=== PATIENT | male | born 1975 | race Caucasian/White ===

== ENCOUNTER 2020-12-30 15:13 | Emergency (ER) | payer OTHER ==
[~2020-12-30 15:13] MED LIST: COLACE100 MG PO; FLEXERIL10 MG PO; MEDROL 4MG DOSEP4 MG PO; PRILOSEC20 MG PO; PRINIVIL10 MG PO
[2020-12-30 17:10] LABS: BASOPHIL 0.6 % (0-2); EOSINOPHIL 5.4 % (0-5); HCT 40.9 % (42.0-52.0); HGB 13.8 g/dl (13.2-18.0); LYMPHOCYTE 29.1 % (15-48); MCH 30.7 pg (25.0-31.0); MCHC 33.7 g/dL (32.0-36.0); MCV 91.1 fL (78.0-100.0); MONOCYTE 11.7 % (0-12); MPV 9.6 fL (6.0-9.5); NEUTROPHIL 52.7 % (41-80); NRBC 0; PLT 255 K/uL (150-400); RBC 4.49 M/uL (4.70-6.00); RDW 13.1 % (11.5-14.0); WBC 8.3 K/uL (4.0-10.5)
[2020-12-30 17:14] LABS: ALBUMIN 3.5 g/dL (3.4-5.0); BILIRUBIN - TOTAL 0.4 mg/dL (0.2-1.0); BUN/CREAT RATIO (CALC) 20.2 RATIO; CREATININE 0.99 mg/dL (0.67-1.17); GLOBULIN (CALCULATION) 3.8 g/dL; POTASSIUM 4.2 mmol/L (3.5-5.1); TOTAL PROTEIN 7.3 g/dL (6.4-8.2)
[2020-12-30 17:17] LABS: BILIRUBIN NEGATIVE (NEGATIVE); BLOOD NEGATIVE Ery/uL (NEGATIVE); CLARITY CLEAR (CLEAR); COLOR YELLOW (YELLOW); GLUCOSE (U) NORMAL (NORMAL); LEUKOCYTES NEGATIVE Leu/uL (NEGATIVE); NITRITE NEGATIVE (NEGATIVE); PROTEIN NEGATIVE (NEGATIVE); SPECIFIC GRAVITY >=1.030 (1.001-1.030); UROBILINOGEN 0.2 mg/dL (0.2-1.0); pH 5.5 (5.0-9.0)
[2020-12-30] MEDS ORDERED: MEDROL 4MG DOSEP4 MG PO (18:37)
[2020-12-30] MEDS ORDERED: ROBAXIN750 MG PO (18:37)
[2020-12-30] MEDS ORDERED: NORCO 5-325 TA1 EACH PO (18:37)
== END 2020-12-30 18:57 | disposition home or self-care (01) ==
LOC: FER 15:13
PROVIDERS: Emergency Medicine
DX: M54.14 Radiculopathy, thoracic region (principal); Z90.49 Acquired absence of other specified parts of digestive tract
CPT/HCPCS: 36415; 80053; 81003; 85025; J1170; J1885; J2405; J7030

== ENCOUNTER 2021-03-26 15:48 | Emergency (ER) | payer OTHER ==
[~2021-03-26 15:48] MED LIST changes: +NORCO 5-325 TA1 EACH PO; +ROBAXIN750 MG PO
[2021-03-26 17:56] LABS: BASOPHIL 0.3 % (0-2); EOSINOPHIL 0.3 % (0-5); HGB 14.4 g/dl (13.2-18.0); LYMPHOCYTE 21.9 % (15-48); MONOCYTE 12.2 % (0-12); MPV 9.8 fL (6.0-9.5); NRBC 0; PLT 213 K/uL (150-400); RBC 4.65 M/uL (4.70-6.00); WBC 6.8 K/uL (4.0-10.5)
[2021-03-26 18:09] LABS: BUN/CREAT RATIO (CALC) 13.6 RATIO; CREATININE 0.81 mg/dL (0.67-1.17)
[2021-03-27] MEDS ORDERED: TESSALON PERLE100 M1 PO (01:04)
[2021-03-27] MEDS ORDERED: ZITHROMAX500 MG PO (01:04)
[2021-03-27] MEDS ORDERED: PULMICORT FLE180 MCG INH (01:04)
[2021-03-27] MEDS ORDERED: HYDROCODONE-CH473 ML PO (01:04)
== END 2021-03-27 01:19 | disposition home or self-care (01) ==
LOC: FER 15:48
PROVIDERS: Nurse Practitioner Family
DX: U07.1 COVID-19 (principal); E87.1 Hypo-osmolality and hyponatremia; I10 Essential (primary) hypertension; Z88.0 Allergy status to penicillin; Z79.899 Other long term (current) drug therapy
CPT/HCPCS: 36415; 71045; 80048; 84295; 85025; J1100; J7030; M0243; Q0244

== ENCOUNTER 2021-03-31 08:59 | Emergency (ER) | payer OTHER ==
[~2021-03-31 08:59] MED LIST changes: +HYDROCODONE-CH473 ML PO; +PULMICORT FLE180 MCG INH; +TESSALON PERLE100 M1 PO; +ZITHROMAX500 MG PO
[2021-03-31 10:25] LABS: BASOPHIL 0.3 % (0-2); EOSINOPHIL 2.2 & (0-5); HCT 42.3 % (42.0-52.0); HGB 14.3 g/dl (13.2-18.0); LYMPHOCYTE 13.7 % (15-48); MCH 29.9 pg (25.0-31.0); MCHC 33.8 g/dL (32.0-36.0); MCV 88.5 fL (78.0-100.0); MONOCYTE 10.4 % (0-12); MPV 9.2 fL (6.0-9.5); NEUTROPHIL 69.4 % (41-80); PLT 463 K/uL (150-400); RBC 4.78 M/uL (4.70-6.00); WBC 9.22 K/uL (4.0-10.5)
[2021-03-31 10:35] LABS: BUN/CREAT RATIO (CALC) 12.8 RATIO; CREATININE 0.94 mg/dL (0.67-1.17); POTASSIUM 4.2 mmol/L (3.5-5.1)
[2021-03-31] MEDS ORDERED: MEDROL 4MG DOSEP4 MG PO (12:10)
== END 2021-03-31 13:04 | disposition home or self-care (01) ==
LOC: FER 08:59
PROVIDERS: Emergency Medicine
DX: U07.1 COVID-19 (principal); J12.82 Pneumonia due to coronavirus disease 2019; I10 Essential (primary) hypertension; Z88.0 Allergy status to penicillin; Z79.899 Other long term (current) drug therapy
CPT/HCPCS: 36415; 71045; 80048; 85025; U0002